=== PATIENT | male | born 1975 | race Caucasian/White ===

== ENCOUNTER 2017-10-20 16:02 | Inpatient (IN) | payer OTHER ==
--- NOTE | 2017-09-26 20:20 | NUR ---
DRESSING TO PERMACATH AT RIGHT UPPER CHEST CHANGED. NO C/O NAUSEA OR VOMITING. PT C/O ABDOMINAL AND BACK PAIN 05/04. WILL CALL MD FOR PAIN MEDS ORDER. Addendum: 10/21/17 at 0421 by Bella Wang RN ERROR
[~2017-10-20] VITALS: Ht 170.2 cm; Wt 55.8 kg
[2017-10-20 16:05] VITALS: BP 148/99
[2017-10-20] MEDS ORDERED: ONDANSETRON 4 MG/2 ML VIAL IVP ONE (16:40)
[2017-10-20] MEDS ORDERED: MORPHINE SULFATE 4 MG/ML SYR IVP ONE (16:40)
--- NOTE | 2017-10-20 16:40 | NUR ---
42 YO MALE BIB EMS FROM DIALYSIS FOR ABDOMINAL PAIN FOR THREE MONTHS. SKIN IS PINK/WARM/DRY; AAOX4 WITH EVEN AND STEADY GAIT; LUNGS CLEAR BL; HR EVEN AND REGULAR; PT DENIES ANY FEVER, CP, SOB, OR COUGH AT THIS TIME; PATIENT STATES PAIN OF 5/10 AT THIS TIME; VSS; PATIENT POSITIONED FOR COMFORT; HOB ELEVATED; BEDRAILS UP X2; BED DOWN. ER MD MADE AWARE OF PT STATUS.
[2017-10-20 17:04] LABS: BASOPHILS # (AUTO) 0.2 K/uL (0.00-0.22); BASOPHILS % (AUTO) 1.5 % (0.0-2.0); EOSINOPHILS # (AUTO) 0.1 K/uL (0-0.4); EOSINOPHILS % (AUTO) 0.8 % (0.0-4.0); HEMATOCRIT 45.9 % (36-52); HEMOGLOBIN 14.7 g/dL (12.0-18.0); LYMPHOCYTES # (AUTO) 1.5 K/uL (2.0-11.5); LYMPHOCYTES % (AUTO) 14.1 % (20.5-51.1); MEAN CORPUSCULAR HEMOGLOBIN 27 pg (27-31); MEAN CORPUSCULAR HGB CONC 32 g/dL (33-37); MEAN CORPUSCULAR VOLUME 85 fL (80-94); MONOCYTES # (AUTO) 1.4 K/uL (0.8-1.0); MONOCYTES % (AUTO) 12.8 % (1.7-9.3); NEUTROPHILS # (AUTO) 7.6 K/uL (1.8-7.7); NEUTROPHILS % (AUTO) 70.8 % (42.2-75.2); PLATELET COUNT (AUTO) 355 K/uL (140-450); RED BLOOD CELL COUNT(AUTO) 5.41 MIL/uL (4.20-6.10); RED CELL DISTRIBUTION WIDTH 13.9 % (11.6-13.7); WHITE BLOOD COUNT (AUTO) 10.8 K/uL (4.8-10.8)
[2017-10-20 17:22] LABS: ALBUMIN 4.4 g/dL (3.4-5.0); TOTAL BILIRUBIN 0.8 mg/dL (0.0-1.0)
[2017-10-20 17:50] LABS: CREATININE 17.2 mg/dL (0.7-1.3)
[2017-10-20 17:51] LABS: POTASSIUM 5.7 mmol/L (3.5-5.1)
[2017-10-20 17:52] LABS: CARBON DIOXIDE 51.7 mmol/L (21-32)
[2017-10-20] MEDS ORDERED: SODIUM POLYSTYRENE 15 GM/60 ML UDBTL PR ONE (17:55)
[2017-10-20] MEDS ORDERED: CALCIUM CHLORIDE 10% 1,000 MG in NACL 0.9% 100 ML IV ONE (17:55)
--- NOTE | 2017-10-20 18:03 | NUR ---
Dr. Erickson evaluating patient at bedside.
--- NOTE | 2017-10-20 18:12 | NUR ---
AAO PT VOMITTED COFFEE TEA COLLORED EMESIS WITH ADMITTING DR AT BEDSIDE
[2017-10-20] MEDS ORDERED: ONDANSETRON 4 MG/2 ML VIAL IVP PRN (18:35)
[2017-10-20] MEDS ORDERED: LORazepam 2 MG/ML VIAL IVP PRN (18:35)
[2017-10-20] MEDS ORDERED: ACETAMINOPHEN 325 MG TAB PO PRN (18:35)
[2017-10-20] MEDS ORDERED: HYDROcodone/APAP 5/325 MG 1 TAB TAB PO PRN ×2 (18:35)
[2017-10-20] MEDS: PANTOPRAZOLE 80 MG in NACL 0.9% 100 ML IVP SCH (19:30)
--- NOTE | 2017-10-20 19:45 | NUR ---
RECEIVED PT FROM ER VIA CIRO. AAOX4. IV TO LEFT FOREARM, SALINE LOCK. SKIN INTACT. 5TH DIGIT OF RIGHT FOOT AMPUTATION NOTED. DIALYSIS PORT ON RIGHT UPPER CHEST WITH SOILED DRESSING. V/S TAKEN. ORIENTED PT TO THE ROOM. SAFETY PRECAUTION IN PLACE. CALL LIGHT WITHIN REACH. WILL CONTINUE TO MONITOR.
--- NOTE | 2017-10-20 19:45 | NUR ---
Patient will be admitted to care of DR PARRISH. Admited to TELE. Will go to room 123A. Belongings list completed. Report to ESTEBAN COUGHLIN.
[2017-10-20 20:00] VITALS: BP 165/92
[2017-10-20] MEDS ORDERED: OCTREOTIDE ACETATE 100 MCG/ML VIAL IV SCH (20:00)
--- NOTE | 2017-10-20 20:20 | NUR ---
DRESSING TO PERMACATH AT RIGHT UPPER CHEST CHANGED. NO C/O NAUSEA OR VOMITING. PT C/O ABDOMINAL AND BACK PAIN 05/04. WILL CALL MD FOR PAIN MEDS ORDER.
--- NOTE | 2017-10-20 20:30 | NUR ---
RECEIVED A CALL FROM DR. HARTLEY. ORDERED URGENT DIALYSIS TONIGHT. ORDERED KAYEXALATE 30G PO ONCE. MADE AWARE THAT PT C/O ABDOMINAL AND BACK PAIN 7/10 AND BLOOD PRESSURE 180/100. DR. HARTLEY ORDERED DILAUDID 2MG IVP ONCE. DILAUDID 1 MG IVP Q3H PRN FOR PAIN. ORDERED CARRIED OUT.
--- NOTE | 2017-10-20 20:35 | NUR ---
CALLED HOUSE SUP, SANDOSTATIN NOT AVAILABLE IN [facility].
[2017-10-20] MEDS ORDERED: PANTOPRAZOLE 40 MG INJ VIAL IVP ONE (20:39)
[2017-10-20] MEDS ORDERED: SODIUM POLYSTYRENE 15 GM/60 ML UDBTL PO SCH (20:40)
[2017-10-20] MEDS ORDERED: [UNRECOGNIZED DRUG - OTHER] IVP PRN (20:40)
[2017-10-20] MEDS ORDERED: HYDROmorphone PFS 2 MG/ML SYR IVP PRN (20:40)
--- NOTE | 2017-10-20 20:40 | NUR ---
CALLED AND PAGED DIALYSIS NURSE, NO ANSWER. LEFT VOICE MESSAGE. WAITING FOR CALL BACK.
--- NOTE | 2017-10-20 21:37 | NUR ---
CALLED DIALYSIS NURSE AGAIN. NO ANSWER. LEFT VOICE MESSAGE. WAITING FOR CALL BACK.
[2017-10-20] MEDS ORDERED: DEXTROSE 50% 50 ML SYR IVP PRN (21:45)
--- NOTE | 2017-10-20 21:50 | NUR ---
PT'S DAD AT BEDSIDE. NO C/O NAUSEA OR VOMITING NOTED. CALL LIGHT WITHIN REACH. WILL CONTINUE TO MONITOR.
[2017-10-20] MEDS ORDERED: OCTREOTIDE ACETATE 1000 MCG/5 ML VIAL ONE (22:28)
--- NOTE | 2017-10-20 22:50 | NUR ---
DIALYSIS NURSE DIDNT CALL BACK YET. TRIED TO CALL AGAIN. NO ANSWER. LEFT VOICE MSG. WAITING FOR CALL BACK.
--- NOTE | 2017-10-20 23:10 | NUR ---
RECEIVED CALL BACK FROM DIALYSIS NURSE. SHE WILL COME TO DO HEMODIALYSIS.
--- NOTE | 2017-10-20 23:50 | NUR ---
DIALYSIS NURSE CAME TO DO PT'S DIALYSIS. PT'S V/S WITHIN NORMAL LIMITS. BLOOD SUGAR CHECKED 249. 4 UNITS OF INSULIN GIVEN PER SLIDING SCALE.
[2017-10-21] VITALS: BP 142/86
[2017-10-21] MEDS: INSULIN DETEMIR 100 UNITS/ML 10 ML VIAL SUBQ SCH ×2 (00:07→21:44)
[2017-10-21] MEDS: INSULIN LISPRO SLIDING SCALE 100 UNITS/ML VIAL SUBQ PRN ×3 (00:09→21:46)
[2017-10-21] MEDS: BLOOD GLUCOSE MONITORING 1 DEV DEV FS SCH ×5 (00:12→21:20)
--- NOTE | 2017-10-21 00:30 | NUR ---
DIALYSIS NURSE CALLING FOR HELP, STATED THAT PT WAS NOT RESPONDING TO HER. WENT TO ROOM WITH WITH CHARGE NURSE, PT AWAKE AND ALERT.
--- NOTE | 2017-10-21 01:30 | NUR ---
HEMODIALYSIS ONGOING. NO DISTRESS NOTED. DIALYSIS NURSE IN THE ROOM.
[2017-10-21 02:31] LABS: PROTHROMBIN TIME 12.1 secs (10.8-13.4)
--- NOTE | 2017-10-21 02:48 | NUR ---
DIALYSIS ONGOING. V/S WITHIN NORMAL LIMITS. PT SLEEPING. NO S/S OF DISTRESS.
--- NOTE | 2017-10-21 03:01 | NUR ---
PAGED DR. PARRISH. DR. IRWIN IS DRAPERY ROD ASSEMBLER TO CLARIFY CBC ORDER FOR 0000, 0500, 0600 AND 1200 ON 10/21. WAITING FOR CALL BACK.
--- NOTE | 2017-10-21 03:05 | NUR ---
RECEIVED CALL BACK FROM DR. IRWIN. CLARIFIED CBC ORDERS. MADE AWARE THAT 0000 CBC WASN'T DONE, PT IS DOING DIALYSIS. MD ORDER TO CANCEL 0500 AND 0600 CBC AND ORDER TO DO IT AT 0700 AND 1200 ON 10/21/17.
--- NOTE | 2017-10-21 03:22 | NUR ---
DIALYSIS DONE. PER DIALYSIS NURSE, NO OUTPUT. PT RESTING IN BED. NO DISTRESS NOTED. WILL CONTINUE TO MONITOR.
[2017-10-21 04:00] VITALS: BP 123/79
[2017-10-21] MEDS ORDERED: PANTOPRAZOLE 40 MG INJ VIAL IVP ONE (05:19)
--- NOTE | 2017-10-21 05:30 | NUR ---
PT SLEEPING BUT WAKES EASILY. NO C/O PAIN. NO NAUSEA OR VOMITING NOTED. ALL NEEDS MET AT THIS TIME. CALL LIGHT WITHIN REACH.
[2017-10-21] MEDS: PANTOPRAZOLE 80 MG in NACL 0.9% 100 ML IVP SCH (05:36)
[2017-10-21 06:53] LABS: BASOPHILS # (AUTO) 0.1 K/uL (0.00-0.22); BASOPHILS % (AUTO) 0.4 % (0.0-2.0); EOSINOPHILS % (AUTO) 0.3 % (0.0-4.0); HEMATOCRIT 43.2 % (36-52); HEMOGLOBIN 14.1 g/dL (12.0-18.0); LYMPHOCYTES # (AUTO) 0.7 K/uL (2.0-11.5); LYMPHOCYTES % (AUTO) 4.4 % (20.5-51.1); MEAN CORPUSCULAR HEMOGLOBIN 28 pg (27-31); MEAN CORPUSCULAR HGB CONC 33 g/dL (33-37); MEAN CORPUSCULAR VOLUME 85 fL (80-94); MONOCYTES % (AUTO) 6.1 % (1.7-9.3); NEUTROPHILS % (AUTO) 88.8 % (42.2-75.2); PLATELET COUNT (AUTO) 262 K/uL (140-450); RED BLOOD CELL COUNT(AUTO) 5.07 MIL/uL (4.20-6.10)
--- NOTE | 2017-10-21 07:05 | NUR ---
ENDORSED PT TO DAY SHIFT NURSE. PT IN STABLE CONDITION.
--- NOTE | 2017-10-21 07:06 | NUR ---
RECEIVED REPORT FROM GENERAL INTERNAL MEDICINE DOCTOR NURSE. PATIENT LYING IN BED SLEEPING, AROUSABLE BY VOICE. NO DISTRESS NOTED. COMPLAINTS OF LOW BACK PAIN, WILL MEDICATE PER ORDERS. RESPIRATIONS EVEN, UNLABORED, ON ROOM AIR. AAOX4, CALM, COOPERATIVE, SKIN COLOR APPROPRIATE TO ETHNICITY, WARM TO TOUCH. SKIN IS INTACT. ABLE TO AMBULATE TO BATHROOM AND BACK WITH ASSIST. LUNGS CTA ON ALL LOBES. ABDOMEN SOFT, NON-DISTENDED. IV SITE INTACT, PATENT, AND INFUSING PANTOPRAZOLE PER ORDERS. REVIEWED PLAN OF CARE WITH PATIENT. PATIENT VERBALIZED UNDERSTANDING. SAFETY MEASURES IN PLACE, CALL LIGHT WITHIN REACH. WILL CONTINUE TO MONITOR.
[2017-10-21 07:38] LABS: ALBUMIN 4.1 g/dL (3.4-5.0); ANION GAP 15.6 (8-16); CARBON DIOXIDE 34.9 mmol/L (21-32); MAGNESIUM 2.3 mg/dL (1.8-2.4); PHOSPHORUS 8.6 mg/dL (2.5-4.9); POTASSIUM 5.5 mmol/L (3.5-5.1); TOTAL BILIRUBIN 0.8 mg/dL (0.0-1.0)
[2017-10-21 07:43] LABS: WHITE BLOOD COUNT (AUTO) 15.8 K/uL (4.8-10.8)
[2017-10-21 07:47] LABS: CREATININE 10.4 mg/dL (0.7-1.3)
[2017-10-21 08:00] VITALS: BP 142/83
--- NOTE | 2017-10-21 08:13 | NUR ---
PATIENT HAD VOMIT EPISODE X1 WITH 300 ML OUTPUT, BROWNISH COLOR. WILL MEDICATE WITH NAUSEA/VOMIT MEDICATION.
--- NOTE | 2017-10-21 08:54 | NUR ---
PATIENT HAS BEEN SCREENED AND CATEGORIZED HIGH NUTRITION RISK. PATIENT WILL BE SEEN WITHIN 1-2 DAYS OF ADMISSION. 10/20/17-10/21/[address]
--- NOTE | 2017-10-21 10:00 | NUR ---
PATIENT LYING IN BED SLEEPING, AROUSABLE BY VOICE. NO DISTRESS NOTED. DENIES ANY PAIN. WILL CONTINUE TO MONITOR.
[2017-10-21] MEDS ORDERED: NACL 0.9% 1,000 ML IV SCH (11:00)
--- NOTE | 2017-10-21 11:28 | NUR ---
WOUND CARE EVALUATION NOTES: REASON FOR EVALUATION: MULTIPLE SCABS SKIN ASSESSMENT DONE ON THIS 42Y/O MALE PATIENT FROM HOME TO [facility], WITH INITIAL DIAGNOSIS OF EPIGASTRIC PAIN WITH NAUSEA AND VOMITING. PAST MEDICAL HISTORY INCLUDE DIABETES TYPE I,, HYPERTENSION AND ESRD WITH HD. ALL ABOVE INFORMATION WAS OBTAINED FROM THE ADMISSION H&P AND PT. LABS ARE WBC 15.8, H/H 14.1/43.2, GLUCOSE 160, ALBUMIN 4.1, PT/INR 12.1/1.2 AND PTT24.2. CURRENT MEDS INCLUDE INSULIN, PANTOPRAZOLE, AND HYDROCODONE. PATIENT IS AAX4. SKIN WARM TO TOUCH WNL, THICKENED TOENAILS, NO EDEMA, NO HAIR GROWTH AND BILATERAL PEDAL PULSES PRESENT. CAPILLARY REFILL <3 SEC. PLAN OF CARE AND PRESSURE PREVENTIVE MEASURES DISCUSSED WITH PT AND PRIMARY NURSE. PT UNABLE TO VERBALIZE UNDERSTANDING. PT. REFUSED SKIN ASSESSMENT FOR GROINS AND GENITAL AREAS. INTEGUMENTARY: PERMACATH TO RIGHT UPPER CHEST WITH DRESSING IN PLACE DCI BLE MULTIPLE SCABS FROM SCRATCHING PER PT. OLD HEALED SCAR FROM AMPUTATION OF LEFT 5TH METATARSAL SACRALCOCCYX BLANCHABLE REDNESS BILATERAL HEELS THICK CALLUS RECOMMENDATIONS: -APPLY BODY LOTION TO BUE AND BLE DRYNESS AREA -CLEANSE SACRALCOCCYX WITH SOAP AND WATER, PAT DRY AND APPLY SACRAL OPTIFORM Q7 DAYS AND PRN IF SOILING -TURN AND REPOSITION PATIENT Q2H TO LEFT AND RIGHT SIDE ONLY TO OFFLOAD SACRALCOCCYX -ASSESS AND MONITOR SKIN CONDITION DURING POSITION CHANGE, PLEASE PAY ATTENTION TO SACRALCOCCYX AND HEELS -OFFLOAD BILATERAL HEELS BY PLACING PILLOWS UNDER CALVES AT ALL TIMES, UNLESS OTHERWISE CONTRAINDICATED -PRESSURE REDISTRIBUTION SURFACE THERAPY -KEEP SKIN CLEAN AND DRY AT ALL TIMES. RECOMMENDATIONS DISCUSSED WITH PRIMARY RN PLEASE CONTACT WOUND CARE NURSE FOR ANY CONCERNS AND CHANGES IN WOUND CONDITION
[2017-10-21] MEDS ORDERED: MILD SOAP AND WATER TP PRN (11:50)
[2017-10-21 12:00] VITALS: BP 155/88
[2017-10-21 12:39] LABS: HEMATOCRIT 43.7 % (36-52); HEMOGLOBIN 13.9 g/dL (12.0-18.0); MEAN CORPUSCULAR HEMOGLOBIN 27 pg (27-31); MEAN CORPUSCULAR HGB CONC 32 g/dL (33-37); MEAN CORPUSCULAR VOLUME 84 fL (80-94); PLATELET COUNT (AUTO) 261 K/uL (140-450); RED BLOOD CELL COUNT(AUTO) 5.21 MIL/uL (4.20-6.10); RED CELL DISTRIBUTION WIDTH 14.4 % (11.6-13.7); WHITE BLOOD COUNT (AUTO) 20.5 K/uL (4.8-10.8)
[2017-10-21 12:59] LABS: LYMPHOCYTES % (MANUAL) 9 % (20-46); MONOCYTES % (MANUAL) 2 % (5-12)
[2017-10-21] MEDS: DEXT 5% / NACL 0.45% 1,000 ML IV SCH (13:55)
[2017-10-21] MEDS: SENNA 8.6 MG TAB PO SCH ×2 (13:57→17:00)
[2017-10-21] MEDS: HYDRAGUARD CREAM TP SCH (13:57)
[2017-10-21] MEDS: METOCLOPRAMIDE 10 MG/2 ML INJ VIAL IVP SCH ×2 (13:57→20:43)
[2017-10-21] MEDS ORDERED: MORPHINE SULFATE 4 MG/ML SYR IVP PRN ×2 (14:10→20:20)
--- NOTE | 2017-10-21 14:20 | NUR ---
10/21/17 RD INITIAL ASSESSMENT COMPLETED PLEASE REFER TO NUTRITION ASSESSMENT UNDER CARE ACTIVITY FOR ESTIMATED NUTRITIONAL NEEDS. 1.DIET TO ADVANCE MEDICALLY APPROPRIATE, PT TO MEET ESTIMATED ENERGY AND PROTEIN NEEDS WITH PO INTAKE WITHIN 2-3 DAYS 2.BLOOD GLUCOSE LEVELS TO REMAIN WNL (74-106 ML/DL) WITHIN 2-[address]
--- NOTE | 2017-10-21 14:20 | NUR ---
PATIENT LYING IN BED WATCHING TV. NO DISTRESS NOTED. COMPLAINTS OF PAIN, WILL MEDICATE PER ORDERS. SCHEDULED MEDICATIONS DUE GIVEN. SAFETY MEASURES IN PLACE, CALL LIGHT WITHIN REACH. WILL CONTINUE TO MONITOR.
--- NOTE | 2017-10-21 14:27 | NUR ---
GAVE REPORT TO ESTEBAN MCKAY FOR RESUMING CARE FOR PATIENT. PATIENT IN STABLE CONDITION.
--- NOTE | 2017-10-21 14:28 | NUR ---
RECEIVED REPORT FROM ESTEBAN DE SANTIAGO, AT BEDSIDE FOR CONTINUITY OF CARE. PATIENT IS SLEEPING. NO SIGNS OF DISTRESS OR DISCOMFORT NOTED. RESPIRATIONS ARE EVEN AND UNLABORED. PATIENT IS ON RA. IV ON R HAND, #22 G RUNNING D5 5% 1/2 NS @ 70 ML/HR, ASYMPTOMATIC, PATENT AND INTACT. SKIN IS WARM AND DRY. SAFETY PRECAUTIONS IN PLACE, BED ON LOWEST SETTING, CALL LIGHT WITHIN REACH. WILL CONTINUE TO MONITOR PATIENT.
--- NOTE | 2017-10-21 14:59 | NUR ---
FAXED INITIAL REVIEW TO [facility] [phone] PHONE LUANN [phone]
[2017-10-21 16:00] VITALS: BP 140/92
--- NOTE | 2017-10-21 17:10 | NUR ---
DR PARRISH WANTED TO KNOW ABOUT THE EGD, IF HE HAD IT OR WHEN HE WAS PLANNING TO HAVE IT DONE. LOOKED AT DR. CARPENTER'S PROGRESS NOTE. HE WANTED TO SEE IF REGLAN WILL HELP WITH NAUSEA AND A URINE DRUG SCREEN. EGD NEEDED. PAGED DR. PARRISH. NOTIFIED PT. WILL CONTINUE TO MONITOR PT.
--- NOTE | 2017-10-21 19:15 | NUR ---
ENDORSED PT TO THE PARKING LOT SPOTTER NURSE AT BEDSIDE FOR CONTINUITY OF CARE. PT IS IN STABLE CONDITION.
--- NOTE | 2017-10-21 19:30 | NUR ---
RECEIVED PT IN STABLE CONDITION FROM AM NURSE. AWAKE,ALERT AND ORIENTED X4. ON TELE MONITOR. WITH NO C/O ANY DISCOMFORT AT THIS TIME. HAS IVF INFUSING WELL ON THE RT HAND #22. PT ON HD, WITH ACCESS ON THE RT UPPER CHEST ALEXANDER SPLIT CATHETER. PLAN OF CARE DISCUSSED AND VERBALIZED UNDERSTANDING. WITH REDNESS ON SACRAL AREA WITH DRESSING. CALL LIGHT PLACED WITHIN EASY REACH. INSTRUCTED TO CALL FOR ANY ASSISTANCE. WILL CONTINUE TO MONITOR.
[2017-10-21 20:00] VITALS: BP 139/93
[2017-10-21] MEDS ORDERED: HYDROmorphone PFS 2 MG/ML SYR IVP PRN (20:20)
--- NOTE | 2017-10-21 20:20 | NUR ---
PAGED DR. PARRISH, DR. IRWIN SUPERVISOR [employer] . CALLED BACK. MADE AWARE THAT PT SAID THE MORPHINE DOESN'T REALLY WORKS WELL ON HIS PAIN. WITH ORDERS MADE.
[2017-10-21] MEDS ORDERED: AMITRIPTYLINE 10 MG TAB PO SCH (21:00)
--- NOTE | 2017-10-21 21:00 | NUR ---
URINE SPECIMEN COLLECTED . SEND TO LAB FOR ANALYSIS.
--- NOTE | 2017-10-21 23:00 | NUR ---
MADE ROUNDS. PT ASLEEP. NO S/S OF ANY [id number] NOTED.
[2017-10-22 00:16] VITALS: BP 133/85
[2017-10-22] MEDS: HYDRAGUARD CREAM TP SCH ×2 (00:51→13:53)
--- NOTE | 2017-10-22 02:00 | NUR ---
MADE ROUNDS . PT ASLEEP. NO S/S OF ANY DISCOMFORT NOTED.
[2017-10-22] MEDS: DEXT 5% / NACL 0.45% 1,000 ML IV SCH (03:19)
[2017-10-22 03:22] LABS: BARBITURATE, URINE NEG. ng/ml (NEG <=200); BENZODIAZEPINE, URINE NEG. ng/mL (NEG <=200); CANNABINOID, URINE POS. ng/mL (NEG <=50); COCAINE, URINE NEG. ng/mL (NEG <=300); OPIATE, URINE NEG. ng/mL (NEG <=2000); PHENCYCLIDINE SCREEN,URINE NEG. ng/mL (NEG <=25)
[2017-10-22] MEDS: METOCLOPRAMIDE 10 MG/2 ML INJ VIAL IVP SCH ×2 (04:27→12:24)
[2017-10-22 04:30] VITALS: BP 124/78
--- NOTE | 2017-10-22 04:30 | NUR ---
PT MADE AWARE FOR THE HD SCHEDULED TODAY. VERBALIZED UNDERSTANDING.
[2017-10-22] MEDS: BLOOD GLUCOSE MONITORING 1 DEV DEV FS SCH ×2 (05:54→12:25)
--- NOTE | 2017-10-22 05:56 | NUR ---
BLOOD SUGAR WAS CHECKED THIS AM ONLY 58. PT AWAKE,ALERT AND ORINETED BUT CAN'T TOLERATE PO FOR NOW. D50 50ML IVP GIVEN ORDERED. WILL RECHECK BS LATER.
--- NOTE | 2017-10-22 06:27 | NUR ---
RECHECKED BLOOD SUGAR AT THIS TIME RESULT 166.
--- NOTE | 2017-10-22 07:23 | NUR ---
ENDORSED PT IN STABLE CONDITION TO AM NURSE.
[2017-10-22 08:00] VITALS: BP 159/88
[2017-10-22] MEDS ORDERED: PANT20EC12 PO (08:22)
[2017-10-22] MEDS ORDERED: GABA100C PO (08:22)
[2017-10-22] MEDS ORDERED: METO5SOL19 GT (08:22)
[2017-10-22] MEDS ORDERED: ONDANSETRON 4 MG TAB PO PRN (08:45)
[2017-10-22] MEDS ORDERED: ONDANSETRON 4 MG/2 ML VIAL IVP PRN (08:50)
[2017-10-22] MEDS: SENNA 8.6 MG TAB PO SCH ×2 (09:07→13:00)
--- NOTE | 2017-10-22 09:08 | NUR ---
ADMINISTERED MORNING MEDICATIONS. PATIENT TOLERATED THEM WELL. SUZI, PIGMENT MIXER, IN TALKING TO PATIENT. NO SIGNS OF DISTRESS NOTED. SAFETY PRECAUTIONS IN PLACE. WILL CONTINUE TO MONITOR PATIENT.
--- NOTE | 2017-10-22 09:11 | NUR ---
LATE ENTRY: DR. PARRISH WAS HERE. WROTE [address] RX[address] STATED THAT ONCE DR. CARPENTER SEES HIM AND CLEARS HIM, HE CAN BE DISCHARGE TODAY. DR PARRISH ORDERED INCREASE DIET TOLERATED. PT ALSO C/O ABD PAIN AND REQUESTS MEDICATION. WHEN GOING OVER HIS MED LIST, NORCO WAS D/C'D, ONLY MORPHINE AND DILAUDID. PAGED AND SPOKE TO DR PARRISH, NO MORE NARCOTICS. IT IS CONTRAINDICATED FOR HIS DIAGNOSIS. ORDERED ORAL ONDANSETRON. WHEN EXPLAINED TO THE PT. PT IS UPSET.
--- NOTE | 2017-10-22 09:15 | NUR ---
DIALYSIS NURSE HERE, STARTED HD.
[2017-10-22 10:00] LABS: APPEARANCE,URINE CLEAR (CLEAR); BILIRUBIN,URINE NEGATIVE (NEGATIVE); BLOOD, URINE NEGATIVE (NEGATIVE); COLOR,URINE YELLOW (YELLOW); LEUKOCYTE ESTERASE ,URINE NEGATIVE (NEGATIVE); NITRITE, URINE NEGATIVE (NEGATIVE); PH,URINE 8.5 (5.0-9.0); UGLUCOSE TRACE (NEGATIVE)
[2017-10-22 11:34] LABS: RBC,URINE 0-5 (RARE) /HPF (0-5); WBC,URINE 0-5 (RARE) /HPF (0-5)
--- NOTE | 2017-10-22 11:42 | NUR ---
SPOKE TO DR. Yuval CARPENTER RE PT. PER , PT IS CLEARED TO BE D/C TODAY. PT TO F/U WITH PCP WITHIN A WEEK.
[2017-10-22 12:00] VITALS: BP 201/108
--- NOTE | 2017-10-22 12:13 | NUR ---
PER PT, PT NOT FEELING WELL. DIALYSIS NURSE SAID DEPENDING ON HIS CONDITION, HE WILL BE DONE AROUND 1315. BROUGHT PT RENAL DIET LUNCH. HE ASKED TO BE PUT ON TABLE FOR LATER. ASKED FOR ICE WATER. BROUGHT HIM A FULL PITCHER. WILL CONTINUE TO MONITOR PT.
[2017-10-22] MEDS: INSULIN LISPRO SLIDING SCALE 100 UNITS/ML VIAL SUBQ PRN (12:45)
--- NOTE | 2017-10-22 12:45 | NUR ---
PATIENT COMPLAINED HE WAS NOT FEELING WELL. REQUESTED DIALYSIS TO BE TERMINATED. PER SECURITY LEAD, HE WILL TERMINATE DIALYSIS AND CALL MD. VS: BP 201/108 HR 111 RR 20 O2 95% T 99.6. BEFORE DIALYSIS, PATIENT REQUESTED FOR LEADS TO BE TAKEN OFF EARLIER. ASKED PATIENT IF IT COULD BE PUT BACK ON, PATIENT DECLINED. WILL CONTINUE TO MONITOR PATIENT CLOSELY.
--- NOTE | 2017-10-22 13:15 | NUR ---
PATIENT REFUSED [place]. SAFETY PRECAUTIONS IN PLACE. WILL CONTINUE TO MONITOR PATIENT.
--- NOTE | 2017-10-22 15:05 | NUR ---
PATIENT ASLEEP IN BED. NO SIGNS OF DISTRESS NOTED. SAFETY PRECAUTIONS IN PLACE. WILL CONTINUE TO MONITOR PATIENT.
--- NOTE | 2017-10-22 15:30 | NUR ---
DISCHARGE INSTRUCTIONS GIVEN TO PT. PT VERBALIZED UNDERSTANDING. ANSWERED ALL QUESTIONS. REMOVED IV, CANNULA INTACT. NO BLEEDING NOTED. REMOVED ID BANDS. DENIES PAIN. WILL GET DRESSED AND LET ME KNOW WHEN HIS FATHER GETS HERE. WILL CONTINUE TO MONITOR PT.
--- NOTE | 2017-10-22 15:45 | NUR ---
WHEELED PT OUT TO THE FRONT OF THE HOSPITAL. DAD WAITING IN THE CAR. PERSONAL BELONGINGS WITH PT. PT IN STABLE CONDITION.
[2017-10-22] MEDS ORDERED: METOCLOPRAMIDE 10 MG/2 ML INJ VIAL IVP SCH (21:00)
[2017-10-22] MEDS ORDERED: AMITRIPTYLINE 10 MG TAB PO SCH (21:00)
[2017-10-28] MEDS ORDERED: MILD SOAP AND WATER TP SCH (09:00)
== END 2017-10-22 15:45 | disposition home or self-care (01) | DRG 48 ==
LOC: MED 16:02 → MTU 18:34
PROVIDERS: ADMIT Hospitalist; ATTEND Hospitalist
PROC: 5A1D70Z Performance of Urinary Filtration, Intermittent, Less than 6 Hours Per Day (ICD-10-PCS; principal; 2017-10-20)
PROC: 5A1D70Z Performance of Urinary Filtration, Intermittent, Less than 6 Hours Per Day (ICD-10-PCS; 2017-10-22)
DX: E10.43 Type 1 diabetes mellitus with diabetic autonomic (poly)neuropathy (principal); E10.22 Type 1 diabetes mellitus with diabetic chronic kidney disease; E46 Unspecified protein-calorie malnutrition; N18.6 End stage renal disease; I12.0 Hypertensive chronic kidney disease with stage 5 chronic kidney disease or end stage renal disease; K31.84 Gastroparesis; E87.5 Hyperkalemia; E10.65 Type 1 diabetes mellitus with hyperglycemia; T82.41XA Breakdown (mechanical) of vascular dialysis catheter, initial encounter; F39 Unspecified mood [affective] disorder; Z68.1 Body mass index [BMI] 19.9 or less, adult; Z99.2 Dependence on renal dialysis; Z79.4 Long term (current) use of insulin; Z87.891 Personal history of nicotine dependence; Y84.1 Kidney dialysis as the cause of abnormal reaction of the patient, or of later complication, without mention of misadventure at the time of the procedure; Y92.89 Other specified places as the place of occurrence of the external cause
CPT/HCPCS: 36415; 71010; 74000; 80053; 80305; 81001; 82948; 83036; 83690; 83735; 84100; 85025; 85610; 85730; 87081; 93005; 96365; 96375; 99285; C9113; J1170; J1815; J2270; J2354; J2405; J2765; J3490; J7030; Q0092; Q0162